=== PATIENT | male | born 1965 | race Caucasian/White ===

== ENCOUNTER 2022-12-21 21:59 | Emergency (ER) | payer SELFPAY ==
[~2022-12-21] VITALS: Ht 172.7 cm; Wt 63.0 kg
--- NOTE | 2022-12-21 21:59 | NUR ---
PT BIB FAMILY W/ C/O HEAD INJURY S/P FALLING BACKWARDS FROM WHEELCHAIR. -KO. PT IS IN NAD, SITTING ON OWN MOTORIZED WHEELCHAIR. KEPT COMFORTABLE. VITALS CHECKED.
--- NOTE | 2022-12-21 23:01 | NUR ---
AT THE BEDSIDE
--- NOTE | 2022-12-21 23:22 | NUR ---
PT TO CT ACCOMPANIED BY TECH AND FAMILY MEMBER
--- NOTE | 2022-12-21 23:30 | NUR ---
PT RETURNED FROM CT
--- NOTE | 2022-12-22 00:32 | NUR ---
DPatient discharged to home in stable condition. Written and verbal after care instructions given. Patient verbalizes understanding of instruction.
[2022-12-22 00:34] VITALS: BP 132/89
== END 2022-12-22 00:34 | disposition home or self-care (01) ==
LOC: ER 22:09
DX: S01.01XA Laceration without foreign body of scalp, initial encounter (principal); R51.9 Headache, unspecified; M54.2 Cervicalgia; Z88.8 Allergy status to other drugs, medicaments and biological substances; W05.0XXA Fall from non-moving wheelchair, initial encounter; Y93.89 Activity, other specified; Y92.89 Other specified places as the place of occurrence of the external cause; Y99.8 Other external cause status
CPT/HCPCS: 70450-TC; 72125-TC